=== PATIENT | female | born 1995 | race Caucasian/White ===

== ENCOUNTER 2020-03-17 19:07 | Emergency (ER) | payer SELFPAY ==
[~2020-03-17 19:07] MED LIST: TAMIFLU75 MG PO
[2020-03-17 19:39] LABS: HEMOGLOBIN 12.9 gm/dl (12.3-15.3); RED BLOOD COUNT 4.69 M/UL (4.00-5.10); WHITE BLOOD COUNT 7.6 K/UL (4.5-11.0)
[2020-03-17 19:59] LABS: BUN/CREATININE RATIO 23 (0-10)
[2020-03-17] MEDS ORDERED: IBUPROFEN600 MG PO (22:00)
[2020-03-17] MEDS ORDERED: ZOFRAN ODT 4 MG4 MG PO (22:00)
[2020-03-17] MEDS ORDERED: KEFLEX CAP 500500 MG PO (22:00)
== END 2020-03-17 22:28 | disposition home or self-care (01) ==
LOC: ER1 19:07
PROVIDERS: Emergency Medicine
DX: N39.0 Urinary tract infection, site not specified (principal); N83.202 Unspecified ovarian cyst, left side; F17.200 Nicotine dependence, unspecified, uncomplicated; Z91.040 Latex allergy status
CPT/HCPCS: 36415; 80053; 81001; 83690; 84703; 85025; 87086; 96374; 96375; 99284; J1885; J2405; Q9967

== ENCOUNTER 2020-04-26 21:22 | Emergency (ER) | payer SELFPAY ==
[~2020-04-26 21:22] MED LIST changes: +IBUPROFEN600 MG PO; +KEFLEX CAP 500500 MG PO; +ZOFRAN ODT 4 MG4 MG PO
[2020-04-26 23:22] LABS: RED BLOOD COUNT 4.74 M/UL (4.00-5.10); WHITE BLOOD COUNT 7.4 K/UL (4.5-11.0)
[2020-04-26 23:38] LABS: BUN/CREATININE RATIO 30 (0-10)
[2020-04-27] MEDS ORDERED: SUMATRIPTAN SUC25 MG PO (05:08)
== END 2020-04-27 05:23 | disposition home or self-care (01) ==
LOC: ER1 21:22
PROVIDERS: Emergency Medicine
DX: G43.909 Migraine, unspecified, not intractable, without status migrainosus (principal); F17.290 Nicotine dependence, other tobacco product, uncomplicated
CPT/HCPCS: 70450; 71045; 80053; 81001; 82550; 82553; 83874; 84484; 84703; 85025; 96374; 96375; 99284; J0780; J1885; J2060